=== PATIENT | male | born 1975 | race Two or more races ===

== ENCOUNTER 2022-06-01 19:32 | Emergency (ER) | payer SELFPAY ==
[~2022-06-01] VITALS: Ht 170.2 cm; Wt 70.3 kg
--- NOTE | 2022-06-01 20:00 | NUR ---
PATIENT WAS BIB [employer] FOR SI, PATIENT WAS PLACED IN BED 15 AND SI PRECAUTION WAS IMPLEMENTED. GOWNED UP. BELONGGINGS WERE TAKEN AWAY IN SAFE . PATIENT DENIED SI/ HI TO THE NURSE. WILL CONTINUE TO MONITOR
--- NOTE | 2022-06-01 20:06 | NUR ---
PATIENT UNABLE TO PROVIDE URINE AT THIS TIME
--- NOTE | 2022-06-01 20:07 | NUR ---
SWAB FOR COVID19 SEN TO LAB
--- NOTE | 2022-06-01 20:19 | NUR ---
PATIENTS BELONGINGS COLLECTED (3BAGS) AND PLACED IN LOCKER.
--- NOTE | 2022-06-01 20:38 | NUR ---
URINE SAMPLE SENT TO LAB
[2022-06-01 20:54] LABS: BASOPHILS % (AUTO) 0.7 % (0.0-2.0); CARBON DIOXIDE 30 mmol/L (21-32); CHLORIDE 102 mmol/L (98-107); EOSINOPHILS % (AUTO) 0.7 % (0.0-6.0); GLUCOSE 125 mg/dL (74-106); HEMATOCRIT 45 % (39-51); LYMPHOCYTES # (AUTO) 1.2 K/uL (0.8-4.8); LYMPHOCYTES % (AUTO) 16.9 % (20.0-44.0); MEAN CORPUSCULAR HGB CONC 34 g/dl (31.0-36.0); MEAN CORPUSCULAR VOLUME 85 fL (80-96); MONOCYTES # (AUTO) 0.6 K/uL (0.1-1.30); MONOCYTES % (AUTO) 8.4 % (2.0-12.0); NEUTROPHILS # (AUTO) 5.3 K/uL (1.8-8.9); NEUTROPHILS % (AUTO) 73.3 % (43.0-81.0); PLATELET COUNT (AUTO) 331 K/uL (150-450); POTASSIUM 4.2 mmol/L (3.5-5.1); RED BLOOD CELL COUNT(AUTO) 5.25 MIL/uL (4.5-6.0); SODIUM SERUM 138 mmol/L (136-145); UREA NITROGEN, BLOOD 11 mg/dL (7-18); WHITE BLOOD COUNT (AUTO) 7.2 K/uL (4.3-11.0)
[2022-06-01 21:00] LABS: ALANINE AMINOTRANSFERASE 26 U/L (12-78); ALCOHOL, BLOOD < 3 mg/dL (0-0); ALKALINE PHOSPHATASE 82 U/L (46-116); ASPARTATE AMINOTRANSFERASE 27 U/L (15-37); BILIRUBIN,DIRECT 0.1 mg/dL (0.0-0.2); BILIRUBIN,TOTAL 0.4 mg/dL (0.2-1.0); TOTAL PROTEIN, SERUM 7.4 g/dL (6.4-8.2)
[2022-06-01 21:02] LABS: ACETAMINOPHEN 0 ug/ml (10-30)
[2022-06-01 21:34] LABS: BILIRUBIN,URINE NEGATIVE (NEGATIVE); COLOR,URINE YELLOW (YELLOW); LEUKOCYTE ESTERASE ,URINE NEGATIVE (NEGATIVE); NITRITE, URINE NEGATIVE (NEGATIVE); PROTEIN,URINE NEGATIVE (NEGATIVE); UGLUCOSE NEGATIVE (NEGATIVE); UROBILINOGEN,URINE 0.2 EU/dL (0.2)
--- NOTE | 2022-06-01 22:22 | NUR ---
CALLED VALERIA FROM [facility]ISIS TEAM TO EVALUATE THE PATIENT
--- NOTE | 2022-06-01 23:32 | NUR ---
RHYS SHAW AT BED SIDE FOR EVAL
--- NOTE | 2022-06-02 00:20 | NUR ---
SEEN AND EVALUATED BY OTIS SHAW FOR DISCHARGE. DR ALMENDAREZ MADE AWARE.
--- NOTE | 2022-06-02 05:09 | NUR ---
patient is awake, alert and Ox4. verablly responsive. denied SI/HI. ambulatory with teady gaits. po intake tolerated well. made aware. medicaly stable for D.C
[2022-06-02 05:30] VITALS: BP 139/75
--- NOTE | 2022-06-02 05:30 | NUR ---
Patient discharged to home in stable condition. Written and verbal after care instructions given. Patient verbalizes understanding of instruction.
== END 2022-06-02 05:31 | disposition home or self-care (01) ==
LOC: ER 19:34
DX: R45.851 Suicidal ideations (principal); Z59.00 Homelessness unspecified; J45.909 Unspecified asthma, uncomplicated; F15.90 Other stimulant use, unspecified, uncomplicated; Z20.822 Contact with and (suspected) exposure to COVID-19
CPT/HCPCS: 99285; 85025; 80048; 80076; 81003; 36415; 87426; 80143; 80320; 80307; C9803; G0480